=== PATIENT | male | born 1960 | race Caucasian/White ===

== ENCOUNTER 2019-12-15 17:11 | Emergency (ER) | payer OTHER ==
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
[2019-12-15 17:24] VITALS: PULSE 92; TEMP 97.9; BMI 32.2
--- NOTE | 2019-12-15 17:28 | PDOC ---
Attending Attestation - Resident Resident Name: Raj Mathew - ED Attending Attestation I have performed the following: I have examined & evaluated the patient, The case was reviewed & discussed with the resident, I agree w/resident's findings & plan
[2019-12-15] MEDS ORDERED: ACETAMINOPHEN 1000 MG/100 ML VIAL (NON FORMULARY) IVPB ONE (18:12)
[2019-12-15] MEDS ORDERED: SODIUM CHLORIDE 0.9% 500 ML INFUS.BAG IV ONE (18:12)
[2019-12-15] MEDS ORDERED: ACETAMINOPHEN INJECTION 100 ML IVPB ONE (18:24)
[2019-12-15 18:35] LABS: BASO % 0.8 % (0-2.0); EOS % 0.8 % (0-4.5); HEMATOCRIT 46.6 % (35.4-49); HEMOGLOBIN 15.6 GM/dL (11.7-16.9); LYMPH % 11.2 % (8-40); MCH 31.3 pg (25.7-33.7); MCHC 33.5 g/dl (32.0-35.9); MEAN CELL VOLUME 93.4 fl (80-96); MEAN PLT VOLUME 7.9 fl (7.5-11.1); MONO % 4.4 % (3.8-10.2); NEUT % 82.8 % (42.8-82.8); PLATELET COUNT 329 K/MM3 (134-434); RBC 4.99 M/mm3 (4.00-5.60); RDW 13.7 % (11.9-15.9); WHITE BLOOD COUNT 11.5 K/mm3 (4.0-10.0)
[2019-12-15 18:38] LABS: PH,URINE 5.5 (5.0-8.0); URINE APPEARANCE CLEAR; URINE BILIRUBIN NEGATIVE (NEGATIVE); URINE COLOR YELLOW; URINE GLUCOSE (UA) NEGATIVE (NEGATIVE); URINE KETONE NEGATIVE (NEGATIVE); URINE LEUK ESTERASE NEGATIVE (NEGATIVE); URINE NITRITE NEGATIVE (NEGATIVE); URINE PROTEIN NEGATIVE (NEGATIVE); URINE UROBILINOGEN 0.2 mg/dL (0.2-1.0)
[2019-12-15 18:52] LABS: ALBUMIN 4.1 g/dl (3.4-5.0); BILIRUBIN,TOTAL 0.2 mg/dL (0.2-1); BLOOD UREA NITROGEN 18.1 mg/dL (7-18); CALCIUM 9.5 mg/dL (8.5-10.1); CREATININE 1.1 mg/dL (0.55-1.3); POTASSIUM 3.7 mmol/L (3.5-5.1); TOT PROT 7.7 g/dl (6.4-8.2)
[2019-12-15] MEDS ORDERED: LIDOCAINE 5% TOPICAL PATCH TP ONE (19:08)
--- NOTE | 2019-12-15 19:09 | PDOC ---
*Physical Exam - Vital Signs Last Vital Signs Temp Pulse Resp BP Pulse Ox 97.9 F 92 H 20 118/60 97 12/15/19 17:18 12/15/19 20:58 12/15/19 20:58 12/15/19 20:58 12/15/19 20:58 <Chente Morris - Last Filed: 12/15/19 21:49> - Vital Signs Last Vital Signs Temp Pulse Resp BP Pulse Ox 97.9 F 92 H 18 135/73 99 12/15/19 17:18 12/15/19 17:18 12/15/19 17:18 12/15/19 17:18 12/15/19 18:40 <Jean-Claude Velasquez - Last Filed: 12/16/19 04:27> ED Treatment Course - LABORATORY CBC & Chemistry Diagram: 12/15/19 18:00 12/15/19 18:00 - ADDITIONAL ORDERS Additional order review: Laboratory Results 12/15/19 12/15/19 12/15/19 18:31 18:00 18:00 Sodium 139 Potassium 3.7 Chloride 105 Carbon Dioxide 28 Anion Gap 6 L BUN 18.1 H Creatinine 1.1 Est GFR (CKD-EPI)AfAm 85.31 Est GFR (CKD-EPI)NonAf 73.61 Random Glucose 135 H Calcium 9.5 Total Bilirubin 0.2 AST 21 ALT 31 Alkaline Phosphatase 116 Troponin I < 0.02 Total Protein 7.7 Albumin 4.1 Urine Color Yellow Urine Appearance Clear Urine pH 5.5 Ur Specific [place] 1.009 L Urine Protein Negative Urine Glucose (UA) Negative Urine Ketones Negative Urine Blood Negative Urine Nitrite Negative Urine Bilirubin Negative Urine Urobilinogen 0.2 Ur Leukocyte Esterase Negative 12/15/19 18:00 RBC 4.99 MCV 93.4 MCHC 33.5 RDW 13.7 MPV 7.9 Neutrophils % 82.8 Lymphocytes % 11.2 D Monocytes % 4.4 Eosinophils % 0.8 D Basophils % 0.8 D - Medications Given in the ED: ED Medications Discontinued Medications Generic Name Dose Route Start Last Admin Trade Name Freq PRN Reason Stop Dose Admin Acetaminophen 1,000 mg 12/15/19 18:12 12/15/19 18:37 Ofirmev Injection - IVPB 12/15/19 18:13 1,000 mg ONCE ONE Administration Lidocaine 1 patch 12/15/19 19:08 12/15/19 20:31 Lidoderm Patch - TP 12/15/19 19:09 1 patch ONCE ONE Administration Sodium Chloride 1,000 ml 12/15/19 18:12 12/15/19 18:36 Normal Saline - IV 12/15/19 18:13 1,000 ml ONCE ONE Administration <Chente Morris - Last Filed: 12/15/19 21:49> - LABORATORY CBC & Chemistry Diagram: 12/15/19 18:00 12/15/19 18:00 - ADDITIONAL ORDERS Additional order review: Laboratory Results 12/15/19 12/15/19 12/15/19 18:31 18:00 18:00 Sodium 139 Potassium 3.7 Chloride 105 Carbon Dioxide 28 Anion Gap 6 L BUN 18.1 H Creatinine 1.1 Est GFR (CKD-EPI)AfAm 85.31 Est GFR (CKD-EPI)NonAf 73.61 Random Glucose 135 H Calcium 9.5 Total Bilirubin 0.2 AST 21 ALT 31 Alkaline Phosphatase 116 Troponin I < 0.02 Total Protein 7.7 Albumin 4.1 Urine Color Yellow Urine Appearance Clear Urine pH 5.5 Ur Specific [place] 1.009 L Urine Protein Negative Urine Glucose (UA) Negative Urine Ketones Negative Urine Blood Negative Urine Nitrite Negative Urine Bilirubin Negative Urine Urobilinogen 0.2 Ur Leukocyte Esterase Negative 12/15/19 18:00 RBC 4.99 MCV 93.4 MCHC 33.5 RDW 13.7 MPV 7.9 Neutrophils % 82.8 Lymphocytes % 11.2 D Monocytes % 4.4 Eosinophils % 0.8 D Basophils % 0.8 D - Medications Given in the ED: ED Medications Discontinued Medications Generic Name Dose Route Start Last Admin Trade Name Juan Antonio PRN Reason Stop Dose Admin Acetaminophen 1,000 mg 12/15/19 18:12 12/15/19 18:37 Ofirmev Injection - IVPB 12/15/19 18:13 1,000 mg ONCE ONE Administration Sodium Chloride 1,000 ml 12/15/19 18:12 12/15/19 18:36 Normal Saline - IV 12/15/19 18:13 1,000 ml ONCE ONE Administration <Jean-Claude Velasquez - Last Filed: 12/16/19 04:27> Medical Decision Making - Medical Decision Making Pt received as sign out Pending CT reads and reassessment 12/15/19 19:[address] head, c-spine, CAP w/o evidence of bleed/fx Pt with persistent abdominal pain/guarding Plan for transfer to [facility] for trauma evaluation Pt accepted for transfer Consent signed by pt 12/16/19 04:24 <Jean-Claude Velasquez - Last Filed: 12/16/19 04:27> Discharge - Discharge Information Problems reviewed: Yes - Transfer to Acute Care Facility Receiving Facility Name: [facility] <Chente Morris - Last Filed: 12/15/19 21:49> - Discharge Information Problems reviewed: Yes - Admission No - Transfer to Acute Care Facility Receiving Facility Name: [facility] Accepting Physician:: Dr. Milton <Jean-Claude Velasquez - Last Filed: 12/16/19 04:27> - Discharge Information Clinical Impression/Diagnosis: Trauma Condition: Guarded Disposition: TRANSFER ACUTE CARE/OTHER HOSP - Follow up/Referral Referrals: Charles Farfan MD [Primary Care Provider] - - Patient Discharge Instructions - Post Discharge Activity
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
[2019-12-15] MEDS ORDERED: LIDOCAINE 5% TOPICAL PATCH ONE (19:28)
[2019-12-15 20:59] VITALS: BP 118/60
[2019-12-15] MEDS ORDERED: LIDOCAINE PATCH REMOVAL MC SCH (22:00)
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
== END 2019-12-15 21:57 | disposition short-term general hospital (02) ==
LOC: JER 17:11
PROC: 3E033NZ Introduction of Analgesics, Hypnotics, Sedatives into Peripheral Vein, Percutaneous Approach (ICD-10-PCS; principal; 2019-12-15)
PROC: B246ZZZ Ultrasonography of Right and Left Heart (ICD-10-PCS; 2019-12-15)
PROC: BW40ZZZ Ultrasonography of Abdomen (ICD-10-PCS; 2019-12-15)
PROC: B54MZZA Ultrasonography of Right Upper Extremity Veins, Guidance (ICD-10-PCS; 2019-12-15)
DX: T14.8XXA Other injury of unspecified body region, initial encounter (principal); M54.2 Cervicalgia; M54.5 Low back pain; R07.9 Chest pain, unspecified; R10.9 Unspecified abdominal pain; V49.49XA Driver injured in collision with other motor vehicles in traffic accident, initial encounter; Y92.488 Other paved roadways as the place of occurrence of the external cause; Y93.89 Activity, other specified; Y99.8 Other external cause status
CPT/HCPCS: 36415; 70450-TC; 71045-TC-FY; 71260-TC; 72125-TC; 74177-TC; 80053; 81003; 84484; 85025; 93005; 93010; 99285-25; J0131; Q9967